=== PATIENT | female | born 1970 | race Caucasian/White ===

== ENCOUNTER 2017-12-28 22:56 | Emergency (ER) | payer SELFPAY ==
[~2017-12-28] VITALS: Ht 170.2 cm; Wt 145.0 kg
[2017-12-28 23:22] VITALS: BP 183/92; PULSE 104; RESP 22; TEMP 97.7; O2SAT 100
[2017-12-28 23:41] VITALS: BP 166/75; PULSE 94; RESP 18; O2SAT 100
[2017-12-28 23:42] VITALS: O2SAT 100
[2017-12-29 00:04] LABS: AUTOMATED NEUTROPHIL # 6.9 TH/MM3 (1.8-7.7); BASOPHIL # 0.1 TH/MM3 (0-0.2); BASOPHIL % 0.7 % (0.0-2.0); EOSINOPHIL # 0.1 TH/MM3 (0-0.4); EOSINOPHIL % 1.1 % (0.0-4.0); HEMATOCRIT 40.1 % (35.0-46.0); HEMOGLOBIN 13.7 GM/DL (11.6-15.3); LYMPH % 21.6 % (9.0-44.0); LYMPHOCYTE # 2.1 TH/MM3 (1.0-4.8); MEAN CORPUSCULAR HEMOGLOBIN 30.8 PG (27.0-34.0); MEAN CORPUSCULAR HGB CONC 34.2 % (32.0-36.0); MEAN PLATELET VOLUME 8.3 FL (7.0-11.0); MONOCYTE # 0.7 TH/MM3 (0-0.9); NEUT % 69.6 % (16.0-70.0); PLATELET COUNT 325 TH/MM3 (150-450); RED BLOOD COUNT 4.46 MIL/MM3 (4.00-5.30); RED CELL DISTRIBUTION WIDTH 13.4 % (11.6-17.2); WHITE BLOOD COUNT 9.8 TH/MM3 (4.0-11.0)
--- NOTE | 2017-12-29 00:07 | RADRPT ---
EXAM DATE/TIME: 12/28/2017 23:54 [place] COMPARISON: No previous studies available for comparison. INDICATIONS : Numbness in right side of chest starting today MEDICAL HISTORY : None. SURGICAL HISTORY : None. ENCOUNTER: Initial ACUITY: 1 day PAIN SCORE: 0/10 LOCATION: Right chest FINDINGS: A single view of the chest demonstrates the lungs to be symmetrically aerated without evidence of mas s, infiltrate or effusion. The cardiomediastinal contours are unremarkable. Osseous structures are intact. CONCLUSION: No acute disease. Clint Alvarez MD on December 29, 2017 at 0:05 Board Certified Radiologist. This report was verified electronically.
[2017-12-29 00:13] LABS: PROTHROMBIN TIME - PATIENT 10.5 SEC (9.8-11.6)
[2017-12-29 00:18] LABS: BICARBONATE 24.4 MEQ/L (21.0-32.0); BLOOD UREA NITROGEN 9 MG/DL (7-18); CALCIUM 8.8 MG/DL (8.5-10.1); CHLORIDE 107 MEQ/L (98-107); CREATININE 0.74 MG/DL (0.50-1.00); GLOMERULAR FILTRATION RATE 84 ML/MIN (>89); GLUCOSE,RANDOM 129 MG/DL (74-106); SODIUM (NA) 143 MEQ/L (136-145)
[2017-12-29 00:21] LABS: TROPONIN I LESS THAN 0.02 NG/ML (0.02-0.05)
--- NOTE | 2017-12-29 00:38 | PD ---
HPI Chief Complaint: Chest Pain Time Seen by Provider: 23:41 Travel History International Travel<30 days: No Contact w/Intl Traveler<30days: No Traveled to known affect area: No History of Present Illness HPI The patient's 47 years old. She arrives with complaint of a tingling sensation in the chest which radiates down to the toes at times for 1 day. She has no shortness of breath fever cough. She has no history of hypertension hyperlipidemia or diabetes. He does not smoke. There is no family history of coronary artery disease. She reports visiting here from [place] and believes some of her symptoms might be due to anxiety and/or change in diet. She reports nausea at times. She denies chest pain. No weakness. No headache or loss of consciousness. PFSH Past Medical History Thyroid Disease: Yes ?: Not Past Surgical History Section: Yes (X3) Social History Alcohol Use: No Tobacco Use: No Substance Use: No Allergies-Medications (Allergen,Severity, Reaction): Coded Allergies: No Known Allergies (Unverified , 12/28/17) Review of Systems Except as stated in HPI: all other systems reviewed are Neg General / Constitutional: No: Fever Physical Exam Narrative GENERAL: 47-year-old female well-nourished well-developed Vital Signs Date Time Temp Pulse Resp B/P (MAP) Pulse Ox O2 Delivery O2 Flow Rate FiO2 12/28/17 23:42 100 Room Air 12/28/17 23:41 94 18 166/75 (105) 100 Room Air 12/28/17 23:22 97.7 104 22 183/92 (122) 100 SKIN: Warm and dry. HEAD: Atraumatic. Normocephalic. EYES: Pupils equal and round. No scleral icterus. No injection or drainage. ENT: No nasal bleeding or discharge. Mucous membranes pink and moist. NECK: Trachea midline. No JVD. CARDIOVASCULAR: Regular rate and rhythm. RESPIRATORY: No accessory muscle use. Clear to auscultation. Breath sounds equal bilaterally. GASTROINTESTINAL: Abdomen soft, non-tender, nondistended. Hepatic and splenic margins not palpable. MUSCULOSKELETAL: Extremities without clubbing, cyanosis, or edema. No obvious deformities. NEUROLOGICAL: Awake and alert. No obvious cranial nerve deficits. Motor grossly within normal limits. Five out of 5 muscle strength in the arms and legs. Normal speech. PSYCHIATRIC: Appropriate mood and affect; insight and judgment normal. Data Data Last Documented VS Vital Signs Date Time Temp Pulse Resp B/P (MAP) Pulse Ox O2 Delivery O2 Flow Rate FiO2 12/29/17 00:55 85 16 165/68 (100) 100 12/28/17 23:42 Room Air 12/28/17 23:22 97.7 Orders Orders Electrocardiogram (12/28/17 23:40) Complete Blood Count With Diff (12/28/17 23:40) Basic Metabolic Panel (Bmp) (12/28/17 23:40) Ckmb (Isoenzyme) Profile (12/28/17 23:40) Troponin I (12/28/17 23:40) Chest, Single Ap (12/28/17 23:40) Iv Access Insert/Monitor (12/28/17:40) Ecg Monitoring (12/28/17 23:40) Oxygen Administration (12/28/17 23:40) Oximetry (12/28/17 23:40) Prothrombin Time / Inr (Pt) (12/28/17:44) Act Partial Throm Time (Ptt) (12/28/17 23:44) Ed Discharge Order (12/29/17 00:41) Lorazepam (Ativan) (12/29/17 00:45) Labs Laboratory Tests Test 12/28/17 23:40 White Blood Count 9.8 TH/MM3 Red Blood Count 4.46 MIL/MM3 Hemoglobin 13.7 GM/DL Hematocrit 40.1 % Mean Corpuscular Volume 90.0 FL Mean Corpuscular Hemoglobin 30.8 PG Mean Corpuscular Hemoglobin Concent 34.2 % Red Cell Distribution Width 13.4 % Platelet Count 325 TH/MM3 Mean Platelet Volume 8.3 FL Neutrophils (%) (Auto) 69.6 % Lymphocytes (%) (Auto) 21.6 % Monocytes (%) (Auto) 7.0 % Eosinophils (%) (Auto) 1.1 % Basophils (%) (Auto) 0.7 % Neutrophils # (Auto) 6.9 TH/MM3 Lymphocytes # (Auto) 2.1 TH/MM3 Monocytes # (Auto) 0.7 TH/MM3 Eosinophils # (Auto) 0.1 TH/MM3 Basophils # (Auto) 0.1 TH/MM3 CBC Comment DIFF FINAL Differential Comment Prothrombin Time 10.5 SEC Prothromb Time International Ratio 1.0 RATIO Activated Partial Thromboplast Time 27.3 SEC Blood Urea Nitrogen 9 MG/DL Creatinine 0.74 MG/DL Random Glucose 129 MG/DL Calcium Level 8.8 MG/DL Sodium Level 143 MEQ/L Potassium Level 3.2 MEQ/L Chloride Level 107 MEQ/L Carbon Dioxide Level 24.4 MEQ/L Anion Gap 12 MEQ/L Estimat Glomerular Filtration Rate 84 ML/MIN Total Creatine Kinase 57 U/L Troponin I LESS THAN 0.02 NG/ML MDM Medical Decision Making Medical Screen Exam Complete: Yes Emergency Medical Condition: Yes Medical Record Reviewed: Yes Differential Diagnosis Anxiety, electrolyte imbalance, paresthesia, tremor, stroke, coronary disease Narrative Course EKG shows no ischemic injury pattern. The rate is 94. Sinus rhythm. CBC & BMP Diagram 12/28/17 23:40 Calcium Level 8.8 Tn < 0.02 Last Impressions Chest X-Ray 12/28/17 2340 Signed Impressions: Service Date/Time: Thursday, December 28, 2017 23:54 - CONCLUSION: No acute disease. Clint Alvarez MD The patient is resting comfortably and feels better, is alert and in no distress. The patients results and examination findings were discussed. The repeat examination is unremarkable and benign. The history, exam, diagnostic testing, and current condition do not suggest any significant pathology to warrant further testing, continued ED treatment, admission, or surgical evaluation at this point. The vital signs have been stable. The patient does not have uncontrollable pain, intractable vomiting, or other significant symptoms. The patient's condition is stable and appropriate for discharge. The patient will pursue further outpatient evaluation with a primary care physician or other designated or consulting physician as indicated in the discharge instructions. The patient expressed understanding and was agreeable with this plan. Diagnosis Primary Impression: Paresthesia Additional Impression: Anxiety Referrals: Primary Care Physician 2 days Med/Other Pt SpecificInfo: No Change to Meds Disposition: 01 DISCHARGE HOME Condition: Stable Jerman Escudero MD December 29, 2017 00:38
[2017-12-29] MEDS ORDERED: LORazepam 0.5 MG TAB PO ONE (00:45)
[2017-12-29 00:55] VITALS: BP 165/68
--- NOTE | 2017-12-29 18:20 | EKG ---
Date Performed: 12/28/2017 Time Performed: 23:32:30 PTAGE: 47 years EKG: Sinus rhythm NORMAL ECG NO PREVIOUS TRACING DOCTOR: Jarrod Sue Interpretating Date/Time 12/29/2017 18:19:23
== END 2017-12-29 00:56 | disposition home or self-care (01) ==
LOC: NEPC 22:56
DX: R20.2 Paresthesia of skin (principal); F41.9 Anxiety disorder, unspecified; R11.0 Nausea
CPT/HCPCS: 71045; 80048; 82550; 84484; 85025; 85610; 85730; 93005; 99285